=== PATIENT | male | born 1980 | race Caucasian/White ===

== ENCOUNTER 2021-06-07 08:17 | Inpatient (IN) ==
[2021-06-07] MEDS ORDERED: SODIUM CHLORIDE 0.9% 1000ML 1,000 ML IV STA (08:39)
--- NOTE | 2021-06-07 08:44 | Emergency Department Note ---
Impression & Plan Acute diverticulitis, Intestinal perforation ED Provider Note CHIEF COMPLAINT: Left lower abdominal pain and diarrhea HISTORY OF PRESENTING ILLNESS: This is a 40-year-old male who presents to the emergency department by private vehicle with complaint of left lower abdominal pain that started 3 days ago. He is also had associated diarrhea, but denies any bloody or black/tarry stools. He denies any nausea or vomiting. He has had some fevers and chills off and on. He notes the pain is primarily in his left lower quadrant and left flank, crampy in nature, persistent, and he rates the p ain 4/10. He notes a history of diverticulitis in the past and states that this feels similar. He did start taking Augmentin when his symptoms started 3 days ago and has also been observing a clear liquid diet since his symptoms started, but he has not having any improvement on this regimen. The patient also notes that he was concerned that he may be developing some jaundice, stating that his noted his skin looked yellowish today. He denies any urinary symptoms, but notes that his urine has been darker than usual. He does follow with Dr. Maier with gastroenterology. He denies any chest pain, chest tightness, shortness of breath, cough or URI symptoms. He is fully vaccinated for COVID-19. REVIEW OF SYSTEMS: A complete 10 point review of systems was reviewed with the patient with pertinent positives and negatives as per history of present illness. All else were negative. PAST MEDICAL HISTORY: History of fatty liver and hiatal hernia, history of diverticulitis SOCIAL HISTORY: Lives at home with family, he denies tobacco use ALLERGIES: No known allergies PHYSICAL EXAM: CONSTITUTIONAL: Pleasant and cooperative. Nontoxic-appearing and in no acute distress. Mildly dehydrated, but otherwise well appearing and well nourished. HEENT: Normocephalic, atraumatic. NECK: Supple, full active range of motion without discomfort. RESPIRATORY: Clear to auscultation bilaterally with no wheezing, crackles, rhonchi or stridor. Equal expansion bilaterally. CARDIOVASCULAR: Regular rate and rhythm with no murmurs, rubs or gallops. Normal peripheral perfusion. No edema. GASTROINTESTINAL: Tender to palpation in the left lower quadrant, no rebound tenderness or guarding. Mild tenderness across the lower abdomen. Abdomen is soft and nondistended. No palpable masses or HSM. Bowel sounds present in all quadrants. No CVA tenderness bilaterally. MUSCULOSKELETAL: Full range of motion of all joints without discomfort. INTEGUMENTARY: No rash or other significant dermatologic conditions noted. NEUROLOGIC: Alert and oriented X 4 with normal affect. Normal strength and sensation in all 4 extremities. Normal speech. Normal gait observed. ED COURSE AND MEDICAL DECISION MAKING: CC: Patient presenting with complaint of lower abdominal pain and diarrhea DIFFERENTIAL DIAGNOSIS: Includes, but not limited to diverticulitis, diverticulosis, pancreatitis, ureteral stone, UTI, pyelonephritis, intra- abdominal abscess, bowel perforation, small bowel obstruction, gastroenteritis, infectious colitis, mesenteric ischemia, among others. INTERPRETATION OF LABS: Leukocytosis, no anemia, normal platelets, no significant electrolyte abnormalities, normal renal function, mildly elevated total bilirubin, otherwise normal liver enzymes and lipase. Lactate within normal limits. UA shows 1+ ketones and 1+ protein and otherwise was negative. COVID testing negative today. MEDICATION RECONCILIATION: I attest that I have personally reviewed the patient's current medication list. INITIAL VITAL SIGNS REVIEW: I reviewed the patient's initial vital signs and interpret them as follows: T: Afebrile; BP: Normotensive; HR: Mildly tachycardic; RR: Within normal limits; Pulse Ox: Within normal limits on room air. MDM SUMMARY: Patient was evaluated at bedside, history and physical exam performed. Patient is alert and oriented, in no acute distress, resting calmly in stret stan. He is afebrile and nontoxic-appearing, but does appear to be mildly dehydrated clinically. Abdomen is point tender in the left lower quadrant, no acute abdomen or peritoneal signs. Cardiac monitoring: An order was placed for continuous cardiac monitoring. The monitor shows a rate of 97 bpm with normal sinus rhythm. Orders were placed for labs, UA, IV fluid bolus for hydration, CT abdomen/pelvis with IV contrast to evaluate for abdominal pain. Patient was offered something for pain, he declines at this time. Patient discussed with Dr. Holcomb, who agrees with my assessment, plan, and d isposition. Labs and imaging reviewed, labs notable for leukocytosis, but no other significant lab abnormalities. Lactate was within normal limits. CT imaging notable for severe acute diverticulitis of the mid descending colon with extraluminal gas in the left lower quadrant indicating perforation. There is also note of small volume intraperitoneal free air in the left lower abdomen. No drainable fluid collection/abscess noted. IV Zosyn was ordered for antibiotic coverage. The patient is being kept n.p.o. I called and spoke with Dr. Hanna with general surgery, who agrees to evaluate the patient for admission. Patient reassessed multiple times throughout ED stay, he has remained hemodynami cara stable and afebrile and notes that his pain remains adequately controlled and continues to decline anything for pain. The patient was updated on all results and plan for admission to the surgery team, all questions were answered to the best my ability and the patient was agreeable with this plan. The patient was stable at the time of admission. The chart was completed utilizing [employer] Speech voice recognition software. Grammatical errors, random word insertions, pronoun errors, and incomplete sentences are an occasional consequence of this system due to software limitations, ambient noise, and hardware issues. Any formal questions or concerns about the content, text, or information contained within the body of this dictation should be directly addressed to the nurse practitioner for clarification. Past Med/Surg History Medical History (Updated 06/07/21 @ 16:52 by KAMAR Esquivel) Arrhythmia HX PAC'S OVER THE PAST 15 YRS-NO MEDS Fatty liver Hiatal hernia History of diverticulitis Surgical History History of colonoscopy Family History Mother Family history of diabetes mellitus Grandfather (Maternal) Family hx of colon cancer Other No significant family history Social History Smoking Status: Never smoker Second Hand Exposure: No; Hx Alcohol Use: Yes Alcohol type: beer Hx Substance Use: No Preferred Language: Citizen Of [place] Communication Ability: Effective [employer] Analyst Required: No Beliefs That Will Affect Care: None Current Living Situation: Spouse Other Information That Helps Us Care for You: No Feels Safe at Home: Yes Safety Concerns: Feels Safe At This Time Assistive Devices: None Allergies Allergies Allergy/AdvReac Type Severity Reaction Status Date / Time No Known Allergies Allergy Verified 08/02/18 14:19 Home Meds Home Medications Medication Instructions Recorded Confirmed ibuprofen 200 mg tablet 600 mg PO QID PRN 07/13/18 06/07/21 amoxicillin 875 mg-potassium 1 tab PO BID 06/07/21 06/07/21 clavulanate 125 mg tablet Results & Data (ED) Vital Signs Vital Signs - 24 hr 06/07/21 08:18 06/07/21 10:18 06/07/21 11:28 Temperature 36.8 C Temperature Source Temporal Artery Scan Pulse Rate 105 H Pulse Rate [Finger] 84 79 Pulse Rhythm [Finger] Regular Regular Pulse Strength [Finger] Normal Respiratory Rate 18 18 18 Respiratory Effort / Characteristics Non-Labored Spontaneous Non-Labored Respiratory Depth Normal Normal Respiratory Pattern Regular Regular Blood Pressure 137/92 Blood Pressure [Right Arm] 137/81 141/87 H Blood Pressure Mean 107 Blood Pressure Mean [Right Arm] 99 105 Blood Pressure Position [Right Arm] Lying Pulse Oximetry 97 97 98 Oxygen Delivery Method Room Air Room Air Room Air Sepsis Recent Fever Within 48 Hours No Sepsis New/Unexplained Change in Mental Status No Sepsis Action Taken by Nursing No Action Required 06/07/21 12:38 06/07/21 13:09 Temperature 37.7 C H Temperature Source Oral Pulse Rate Pulse Rate [Finger] 81 75 Pulse Rhythm [Finger] Regular Pulse Strength [Finger] Normal Respiratory Rate 18 20 Respiratory Effort / Characteristics Non-Labored Non-Labored Spontaneous Respiratory Depth Normal Normal Respiratory Pattern Regular Regular Blood Pressure Blood Pressure [Right Arm] 129/76 132/74 Blood Pressure Mean Blood Pressure Mean [Right Arm] 93 93 Blood Pressure Position [Right Arm] Lying Lying Pulse Oximetry 97 99 Oxygen Delivery Method Room Air Room Air Sepsis Recent Fever Within 48 Hours Sepsis New/Unexplained Change in Mental Status Sepsis Action Taken by Nursing Laboratory Data Result diagrams: 06/07/21 09:00 06/07/21 09:00 Lab Results 06/07/21 06/07/21 06/07/21 Range/Units 09:00 09:00 10:19 WBC 12.74 H (4.8-10.8) K/uL RBC 5.03 (4.7-6.1) M/uL Hgb 14.7 (14.0-18.0) g/dL Hct 42.4 (42-52) % MCV 84.3 (80-100) fL MCH 29.2 (25-34) pg MCHC 34.7 (32-36) g/dL RDW Std Deviation 40.3 (36.4-46.3) fL RDW Coeff of Kaus[place] 13.1 (11.5-14.5) % Plt Count 179 (130-400) K/uL MPV 10.9 H (7.4-10.4) fL Immature Gran % (Auto) 0.2 % Neut % (Auto) 77.0 % Lymph % (Auto) 10.1 % [place] % (Auto) 9.9 % Eos % (Auto) 2.7 % Baso % (Auto) 0.1 % Neut # (Auto) 9.81 H (1.4-6.5) K/uL Lymph # (Auto) 1.29 (1.2-3.4) K/uL [place] # (Auto) 1.26 H (0.11-0.59) K/uL Eos # (Auto) 0.35 (0-0.5) K/uL Baso # (Auto) 0.01 (0-0.2) K/uL Immature Gran # (Auto) 0.02 (0.00-0.02) K/uL Sodium 138 (136-145) mmol/L Potassium 3.7 (3.5-5.1) mmol/L Chloride 103 (98-107) mmol/L Carbon Dioxide 24 (21-32) mmol/L Anion Gap 11 (3-11) BUN 20 (6-23) mg/dl Creatinine 1.13 (0.6-1.4) mg/dl Est Cr Clr Drug Dosing 100.2 ml/min Est GFR ( Amer) 92.4 ml/min Est GFR (Non-Af Amer) 79.7 ml/min BUN/Creatinine Ratio 17.7 (10-20) Glucose 91 (70-99(Fasting)) mg/dl Lactate (0.4-2.0) mmol/L Calcium 9.0 (8.5-10.1) mg/dl Total Bilirubin 1.1 H (0.2-1.0) mg/dl AST 17 (13-39) U/L ALT 12 (7-52) U/L Alkaline Phosphatase 54 (34-104) U/L Total Protein 7.7 (6.0-8.3) gm/dl Albumin 4.1 (3.4-5.0) gm/dl Globulin 3.6 (2.5-4.0) gm/dl Albumin/Globulin Ratio 1.1 (0.9-2) Lipase 13 (11-82) U/L Urine Color Urine Appearance (Clear) Urine pH (4.5-7.5) Ur Specific [place] (1.000-1.030) Urine Protein (Negative) Urine Glucose (UA) (Negative) Urine Ketones (Negative) Urine Blood (Negative) Urine Nitrite (Negative) Urine Bilirubin (Negative) Urine Urobilinogen (Negative) Ur Leukocyte Esterase (Negative) Urine WBC (Auto) (0-5) /hpf Urine RBC (Auto) (0-4) /hpf U Hyaline Cast (Auto) (0-5) /lpf U Epithel Cells (Auto) (0-5) /lpf Urine Bacteria (Auto) (Negative) SARS-CoV-2, RNA, NAAT NEGATIVE (NEGATIVE) 06/07/21 06/07/21 Range/Units 11:54 12:37 WBC (4.8-10.8) K/uL RBC (4.7-6.1) M/uL Hgb (14.0-18.0) g/dL Hct (42-52) % MCV (80-100) fL MCH (25-34) pg MCHC (32-36) g/dL RDW Std Deviation (36.4-46.3) fL RDW Coeff of Kaushal (11.5-14.5) % Plt Count (130-400) K/uL MPV (7.4-10.4) fL Immature Gran % (Auto) % Neut % (Auto) % Lymph % (Auto) % [place] % (Auto) % Eos % (Auto) % Baso % (Auto) % Neut # (Auto) (1.4-6.5) K/uL Lymph # (Auto) (1.2-3.4) K/uL [place] # (Auto) (0.11-0.59) K/uL Eos # (Auto) (0-0.5) K/uL Baso # (Auto) (0-0.2) K/uL Immature Gran # (Auto) (0.00-0.02) K/uL Sodium (136-145) mmol/L Potassium (3.5-5.1) mmol/L Chloride (98-107) mmol/L Carbon Dioxide (21-32) mmol/L Anion Gap (3-11) BUN (6-23) mg/dl Creatinine (0.6-1.4) mg/dl Est Cr Clr Drug Dosing ml/min Est GFR ( Amer) ml/min Est GFR (Non-Af Amer) ml/min BUN/Creatinine Ratio (10-20) Glucose (70-99(Fasting)) mg/dl Lactate 0.7 (0.4-2.0) mmol/L Calcium (8.5-10.1) mg/dl Total Bilirubin (0.2-1.0) mg/dl AST (13-39) U/L ALT (7-52) U/L Alkaline Phosphatase (34-104) U/L Total Protein (6.0-8.3) gm/dl Albumin (3.4-5.0) gm/dl Globulin (2.5-4.0) gm/dl Albumin/Globulin Ratio (0.9-2) Lipase (11-82) U/L Urine Color Yellow Urine Appearance Clear (Clear) Urine pH 5.5 (4.5-7.5) Ur Specific [place] > 1.045 H (1.000-1.030) Urine Protein 1+ H (Negative) Urine Glucose (UA) Negative (Negative) Urine Ketones 1+ H (Negative) Urine Blood Negative (Negative) Urine Nitrite Negative (Negative) Urine Bilirubin Negative (Negative) Urine Urobilinogen Negative (Negative) Ur Leukocyte Esterase Negative (Negative) Urine WBC (Auto) 1-5 (0-5) /hpf Urine RBC (Auto) 0-4 (0-4) /hpf U Hyaline Cast (Auto) 0 (0-5) /lpf U Epithel Cells (Auto) 0-5 (0-5) /lpf Urine Bacteria (Auto) Negative (Negative) SARS-CoV-2, RNA, NAAT (NEGATIVE) Administered Medications Piperacillin Sod/Tazobactam (Sod 3.375 gm/ Dextrose) 115 mls @ 28.75 mls/hr IV Q8H [facility]; Protocol Stop: 06/17/21 15:59 Last Admin: 06/07/21 16:14 Dose: 28.8 mls/hr Documented by: [id number] Discontinued Medications Sodium Chloride (Nss 1000ml) 1,000 mls @ 999 mls/hr IV .Q1H1M STA Stop: 06/07/21 09:39 Last Infusion: 06/07/21 10:05 Dose: 0 mls/hr Documented by: [id number] Admin: 06/07/21 09:02 Dose: 999 mls/hr Documented by: [id number] Piperacillin Sod/Tazobactam Sod (Zosyn) 4.5 gm in 120 mls @ 240 mls/hr IV NOW ONE Stop: 06/07/21 10:36 Last Infusion: 06/07/21 11:10 Dose: 0 mls/hr Documented by: [id number] Admin: 06/07/21 10:23 Dose: 240 mls/hr Documented by: [id number] Ioversol (Optiray 320 100ml) 94 ml IV ONCE ONE Stop: 06/07/21 09:38 Last Admin: 06/07/21 09:37 Dose: 94 ml Documented by: [id number] Imaging Data Radiologist's Impression: Abdomen/Pelvis CT 06/07/21 08:39 CT SCAN OF THE ABDOMEN AND PELVIS WITH IV CONTRAST CLINICAL HISTORY: Left lower quadrant abdominal pain. Diarrhea. COMPARISON STUDY: Abdominal CT dated 05/31/2018. TECHNIQUE: Following the IV administration of 94 cc of Optiray 320, CT scan of the abdomen and pelvis is performed from the lung bases to the proximal femora. Images are reviewed in the axial, sagittal, and coronal planes. IV contrast was administered without complication. A dose lowering technique was utilized adhering to the principles of ALARA. CT DOSE: 592.80 mGy.cm FINDINGS: Lung bases: The heart is normal in size and without pericardial effusion. There are scattered coronary artery calcifications. The lung bases are clear. Liver: The contrast-enhanced liver is enlarged, measuring 19.7 cm in length. Liver demonstrates drainage attenuation consistent with mild steatosis. Fatty sparing is seen adjacent to gallbladder fossa. There is no intrahepatic biliary ductal dilatation. The hepatic veins and portal veins are patent. Gallbladder: Unremarkable. Spleen: Top normal in size and normal in attenuation. Pancreas: Unremarkable. Adrenal glands: Unremarkable. Kidneys: The contrast enhanced kidneys are normal in size and without hydronephrosis. The kidneys enhance symmetrically. Abdominal vasculature: The abdominal aorta is normal in course and caliber. Bowel: There is moderate colonic diverticulosis. There is significant wall thickening with pericolonic inflammation and fluid involving the mid descending colon consistent with severe acute diverticulitis. There are small foci of extra luminal gas at this site. No organized/drainable fluid collection is seen to indicate abscess. There is wall thickening within the an adjacent loop of small bowel, likely reactive. The appendix is well-visualized and normal. Peritoneum: There is trace free fluid in the pelvis. There is a small volume of intraperitoneal free air in the left lower quadrant seen on image #294. Lymphadenopathy: None. Pelvic viscera: The bladder, prostate, and seminal vesicles are normal as visualized. Skeletal structures: No lytic or blastic lesions are seen. IMPRESSION: 1. There is moderate colonic diverticulosis with evidence of severe acute diverticulitis of the mid descending colon. 2. Extraluminal gas in the left lower quadrant indicates perforation. 3. No organized/drainable fluid collection is seen to indicate abscess. 4. Thick-walled loops of adjacent small bowel are likely reactive. 5. The liver is enlarged and mildly steatotic. 6. Trace free fluid in the pelvis is likely reactive. 7. Additional findings as above. ACT 112: Negative or not required by law. Electronically signed by: Raman Kim M.D. 06/07/2021 9:55 AM Discharge Plan Visit Data Chief Complaint: Abdominal Pain Stated Complaint: LT LOWER ABD PAIN,FEVER,VOMITING ED Provider: Andrae Holcomb ED Midlevel Provider: Kay Moya Discharge Problem: Acute diverticulitis, Intestinal perforation Patient Disposition: Admitted As Inpatient Discharge Instructions Interventions: ED Discharge Assessment Last Done: 06/07/21 15:42
[2021-06-07 09:17] LABS: Basophils # (auto) 0.01 K/uL (0-0.2); Basophils % (auto) 0.1 %; Eosinophils # (auto) 0.35 K/uL (0-0.5); Eosinophils % (auto) 2.7 %; Hematocrit (blood only) 42.4 % (42-52); Hemoglobin 14.7 g/dL (14.0-18.0); Immature Granulocytes # (auto) 0.02 K/uL (0.00-0.02); Immature Granulocytes % (auto) 0.2 %; Lymphocytes # (auto) 1.29 K/uL (1.2-3.4); Lymphocytes % (auto) 10.1 %; Mean Corpuscular Hemoglobin 29.2 pg (25-34); Mean Corpuscular Hgb Conc 34.7 g/dL (32-36); Mean Corpuscular Volume 84.3 fL (80-100); Mean Platelet Volume 10.9 fL (7.4-10.4); Monocytes # (auto) 1.26 K/uL (0.11-0.59); Monocytes % (auto) 9.9 %; Neutrophils # (auto) 9.81 K/uL (1.4-6.5); Platelet Count 179 K/uL (130-400); RDW Coefficient of Variation 13.1 % (11.5-14.5); RDW Standard Deviation 40.3 fL (36.4-46.3); Red Blood Count 5.03 M/uL (4.7-6.1); White Blood Count 12.74 K/uL (4.8-10.8)
[2021-06-07 09:28] LABS: Albumin Globulin Ratio 1.1 (0.9-2); Albumin Level 4.1 gm/dl (3.4-5.0); BUN Creatinine Ratio 17.7 (10-20); Bilirubin,Total 1.1 mg/dl (0.2-1.0); Creatinine Clr Calc Pharmacy 100.2 ml/min; Est GFR (African American) 92.4 ml/min; Est GFR (Non-African American) 79.7 ml/min; Globulin 3.6 gm/dl (2.5-4.0); Potassium 3.7 mmol/L (3.5-5.1); Total Protein 7.7 gm/dl (6.0-8.3)
[2021-06-07] MEDS ORDERED: OPTIRAY 320 100ml IV ONE (09:37)
--- NOTE | 2021-06-07 09:56 | CT Scan Report ---
CT SCAN OF THE ABDOMEN AND PELVIS WITH IV CONTRAST CLINICAL HISTORY: Left lower quadrant abdominal pain. Diarrhea. COMPARISON STUDY: Abdominal CT dated 05/31/2018. TECHNIQUE: Following the IV administration of 94 cc of Optiray 320, CT scan of the abdomen and pelvi s is performed from the lung bases to the proximal femora. Images are reviewed in the axial, sagittal , and coronal planes. IV contrast was administered without complication. A dose lowering technique wa s utilized adhering to the principles of ALARA. CT DOSE: 592.80 mGy.cm FINDINGS: Lung bases: The heart is normal in size and without pericardial effusion. There are scattered coronar y artery calcifications. The lung bases are clear. Liver: The contrast-enhanced liver is enlarged, measuring 19.7 cm in length. Liver demonstrates drain age attenuation consistent with mild steatosis. Fatty sparing is seen adjacent to gallbladder fossa. There is no intrahepatic biliary ductal dilatation. The hepatic veins and portal veins are patent. Gallbladder: Unremarkable. Spleen: Top normal in size and normal in attenuation. Pancreas: Unremarkable. Adrenal glands: Unremarkable. Kidneys: The contrast enhanced kidneys are normal in size and without hydronephrosis. The kidneys enh ance symmetrically. Abdominal vasculature: The abdominal aorta is normal in course and caliber. Bowel: There is moderate colonic diverticulosis. There is significant wall thickening with pericoloni c inflammation and fluid involving the mid descending colon consistent with severe acute diverticulit is. There are small foci of extra luminal gas at this site. No organized/drainable fluid collection i s seen to indicate abscess. There is wall thickening within the an adjacent loop of small bowel, like ly reactive. The appendix is well-visualized and normal. Peritoneum: There is trace free fluid in the pelvis. There is a small volume of intraperitoneal free air in the left lower quadrant seen on image #294. Lymphadenopathy: None. Pelvic viscera: The bladder, prostate, and seminal vesicles are normal as visualized. Skeletal structures: No lytic or blastic lesions are seen. IMPRESSION: 1. There is moderate colonic diverticulosis with evidence of severe acute diverticulitis of the mid d escending colon. 2. Extraluminal gas in the left lower quadrant indicates perforation. 3. No organized/drainable fluid collection is seen to indicate abscess. 4. Thick-walled loops of adjacent small bowel are likely reactive. 5. The liver is enlarged and mildly steatotic. 6. Trace free fluid in the pelvis is likely reactive. 7. Additional findings as above. ACT 112: Negative or not required by law. Electronically signed by: Raman Kim M.D. 06/07/2021 9:55 AM
[2021-06-07] MEDS ORDERED: PIPERACILLIN/TAZOBACTAM 4.5 GM/120 ML BAG IV ONE (10:07)
[2021-06-07] MEDS ORDERED: PIPERACILL/TAZOBAC CONSULT ACTIVE PRN ×2 (10:07→15:43)
[2021-06-07 12:19] LABS: Appearance Urine Clear (Clear); Bacteria Urine Automated Negative (Negative); Bilirubin Urine Negative (Negative); Blood Urine Negative (Negative); Cast Urine Automated 0 /lpf (0-5); Color Urine Yellow; Epithelial Cell Urine Auto 0-5 /lpf (0-5); Glucose Urine UA Negative (Negative); Ketones Urine 1+ (Negative); Leukocyte Esterase Urine Negative (Negative); Nitrite Urine Negative (Negative); Protein Urine 1+ (Negative); RBC Urine Automated 0-4 /hpf (0-4); Urobilinogen Urine Negative (Negative); pH Urine 5.5 (4.5-7.5)
[2021-06-07 12:32] LABS: Specific Gravity Urine > 1.045 (1.000-1.030)
[2021-06-07] MEDS ORDERED: IBUPROFEN 600 MG TAB PO PRN (15:43)
[2021-06-07] MEDS ORDERED: HYDROmorphone INJ 1 MG/ML SYRINGE IV PRN (15:43)
[2021-06-07] MEDS: PIPERACILLIN/TAZOBACTAM 3.375 GM in DEXTROSE 5% 100 ML IV SCH (16:14)
--- NOTE | 2021-06-07 16:40 | Surgery Consultation ---
Date of Consultation June 07, 2021 Assessment & Plan (1) Acute diverticulitis: pt is a 40 year-old male who presents with ER with 3 days history LLQ pain, IM: acute diverticulitis with microperforation, plan, base on pt is stable, no fever, no tachycardia, less abdominal pain compare yesterday, pt said he feels better, I recommend to admit pt to hospital for conservative treatment first, NPO, IV fluid, iv antibiotic, control pain, repeat labs in morning, I also indicate that pt may need surgery treatment possible colostomy, bowel resection, if pt's condition is getting worse, pt understood, he agrees with the plan, I answered all questions, History of Present Illness Reason for Consultation: abdominal apin Attending Physician: Becky Hanna MD History of Present Illness ED Provider Note CHIEF COMPLAINT: Left lower abdominal pain and diarrhea HISTORY OF PRESENTING ILLNESS: This is a 40-year-old male who presents to the emergency department by private vehicle with complaint of left lower abdominal pain that started 3 days ago. He is also had associated diarrhea, but denies any bloody or black/tarry stools. He denies any nausea or vomiting. He has had some fevers and chills off and on. He notes the pain is primarily in his left lower quadrant and left flank, crampy in nature, persistent, and he rates the pain 4/10. He notes a history of diverticulitis in the past and states that this feels similar. He did start taking Augmentin when his symptoms started 3 days ago and has also been observing a clear liquid diet since his symptoms started, but he has not having any improvement on this regimen. The patient also notes that he was concerned that he may be developing some jaundice, stating that his noted his skin looked yellowish today. He denies any urinary symptoms, but notes that his urine has been darker than usual. He does follow with Dr. Maier with gastroenterology. He denies any chest pain, chest tightness, shortness of breath, cough or URI symptoms. He is fully vaccinated for COVID-19. I ( Becky Hanna MD ) got a call for consult diverticulitis, I reviewed pt's H/P,labs, CT scan with pt, pt feels better, less LLQ pain, no fever, REVIEW OF SYSTEMS: A complete 10 point review of systems was reviewed with the patient with pertinent positives and negatives as per history of present illness. All else were negative. PAST MEDICAL HISTORY: History of fatty liver and hiatal hernia, history of diverticulitis SOCIAL HISTORY: Lives at home with family, he denies tobacco use ALLERGIES: No known allergies Allergies Allergy/AdvReac Type Severity Reaction Status Date / Time No Known Allergies Allergy Verified 08/02/18 14:19 Home Medications Medication Instructions Recorded Confirmed Type ibuprofen 200 mg tablet 600 mg PO QID PRN 07/13/18 06/07/21 History amoxicillin 875 mg-potassium 1 tab PO BID 06/07/21 06/07/21 History clavulanate 125 mg tablet Patient History Medical History (Updated 06/07/21 @ 16:41 by Becky Hanna MD) Arrhythmia HX PAC'S OVER THE PAST 15 YRS-NO MEDS Fatty liver Hiatal hernia History of diverticulitis Surgical History History of colonoscopy Family History Mother Family history of diabetes mellitus Grandfather (Maternal) Family hx of colon cancer Other No significant family history Social History Smoking Status: Never smoker Second Hand Exposure: No; Hx Alcohol Use: Yes Alcohol type: beer Hx Substance Use: No Preferred Language: Estonian Communication Ability: Effective 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 Beliefs That Will Affect Care: None Current Living Situation: Spouse Other Information That Helps Us Care for You: No Feels Safe at Home: Yes Safety Concerns: Feels Safe At This Time Assistive Devices: None Review of Systems Constitutional: as per Subjective / HPI Eyes: as per Subjective / HPI Respiratory: as per Subjective / HPI Cardiovascular: as per Subjective / HPI Gastrointestinal: diverticulitis, 3 years ago, Genitourinary: + as per Subjective / HPI Musculoskeletal: as per Subjective / HPI Integumentary: as per Subjective / HPI Neurologic: as per Subjective / HPI Psychiatric: as per Subjective / HPI Endocrine: as per Subjective / HPI Hematologic / Lymphatic: as per Subjective / HPI Physical Exam Constitutional: WD/WN, vitals as above no distress, Eyes: PERRL, conjunctivae normal, anicteric sclerae Neck: trachea midline, no thyromegaly Respiratory: normal respiratory effort, lungs clear to auscultation Cardiovascular: RRR, no murmur, no edema Gastrointestinal (Abdomen): soft, mild tenderness at LLQ , no rebound pain, no distend, BS + Musculoskeletal: no cyanosis or clubbing, extremities motor strength 5/5 Neurologic: patellar DTR's 2+ bilat, sensation intact Psychiatric: A+Ox3, euthymic affect Results & Data ([facility]) Vital Signs (Past 12 Hours) Vital Signs Temp Pulse Pulse Resp BP BP Pulse Ox 06/07/21 16:16 36.9 C 76 16 128/76 96 06/07/21 13:09 75 20 132/74 99 06/07/21 12:38 37.7 C H 81 18 129/76 97 06/07/21 11:28 79 18 141/87 H 98 06/07/21 10:18 84 18 137/81 97 06/07/21 08:18 36.8 C 105 H 18 137/92 97 Laboratory Results Abnormal lab results 06/07/21 06/07/21 06/07/21 Range/Units 09:00 09:00 11:54 WBC 12.74 H (4.8-10.8) K/uL MPV 10.9 H (7.4-10.4) fL Neut # (Auto) 9.81 H (1.4-6.5) K/uL [place] # (Auto) 1.26 H (0.11-0.59) K/uL Total Bilirubin 1.1 H (0.2-1.0) mg/dl Ur Specific Model > 1.045 H (1.000-1.030) Urine Protein 1+ H (Negative) Urine Ketones 1+ H (Negative) Diagnostic Findings CT SCAN OF THE ABDOMEN AND PELVIS WITH IV CONTRAST CLINICAL HISTORY: Left lower quadrant abdominal pain. Diarrhea. COMPARISON STUDY: Abdominal CT dated 05/31/2018. TECHNIQUE: Following the IV administration of 94 cc of Optiray 320, CT scan of the abdomen and pelvis is performed from the lung bases to the proximal femora. Images are reviewed in the axial, sagittal, and coronal planes. IV contrast was administered without complication. A dose lowering technique was utilized adhering to the principles of ALARA. CT DOSE: 592.80 mGy.cm FINDINGS: Lung bases: The heart is normal in size and without pericardial effusion. There are scattered coronary artery calcifications. The lung bases are clear. Liver: The contrast-enhanced liver is enlarged, measuring 19.7 cm in length. Liver demonstrates drainage attenuation consistent with mild steatosis. Fatty sparing is seen adjacent to gallbladder fossa. There is no intrahepatic biliary ductal dilatation. The hepatic veins and portal veins are patent. Gallbladder: Unremarkable. Spleen: Top normal in size and normal in attenuation. Pancreas: Unremarkable. Adrenal glands: Unremarkable. Kidneys: The contrast enhanced kidneys are normal in size and without hydronephrosis. The kidneys enhance symmetrically. Abdominal vasculature: The abdominal aorta is normal in course and caliber. Bowel: There is moderate colonic diverticulosis. There is significant wall thickening with pericolonic inflammation and fluid involving the mid descending colon consistent with severe acute diverticulitis. There are small foci of extra luminal gas at this site. No organized/drainable fluid collection is seen to indicate abscess. There is wall thickening within the an adjacent loop of small bowel, likely reactive. The appendix is well-visualized and normal. Peritoneum: There is trace free fluid in the pelvis. There is a small volume of intraperitoneal free air in the left lower quadrant seen on image #[id number]. Lymphadenopathy: None. Pelvic viscera: The bladder, prostate, and seminal vesicles are normal as visualized. Skeletal structures: No lytic or blastic lesions are seen. IMPRESSION: 1. There is moderate colonic diverticulosis with evidence of severe acute diverticulitis of the mid descending colon. 2. Extraluminal gas in the left lower quadrant indicates perforation. 3. No organized/drainable fluid collection is seen to indicate abscess. 4. Thick-walled loops of adjacent small bowel are likely reactive. 5. The liver is enlarged and mildly steatotic. 6. Trace free fluid in the pelvis is likely reactive. 7. Additional findings as above.
[2021-06-07] MEDS: LACTATED RINGER'S 1,000 ML IV SCH (20:18)
[2021-06-08] MEDS: PIPERACILLIN/TAZOBACTAM 3.375 GM in DEXTROSE 5% 100 ML IV SCH ×4 (00:04→23:23)
[2021-06-08] MEDS: LACTATED RINGER'S 1,000 ML IV SCH ×3 (04:09→23:18)
[2021-06-08 05:36] LABS: Basophils # (auto) 0.02 K/uL (0-0.2); Basophils % (auto) 0.3 %; Eosinophils # (auto) 0.48 K/uL (0-0.5); Eosinophils % (auto) 6.3 %; Hematocrit (blood only) 38.4 % (42-52); Hemoglobin 13.3 g/dL (14.0-18.0); Immature Granulocytes # (auto) 0.02 K/uL (0.00-0.02); Immature Granulocytes % (auto) 0.3 %; Lymphocytes # (auto) 1.11 K/uL (1.2-3.4); Lymphocytes % (auto) 14.5 %; Mean Corpuscular Hgb Conc 34.6 g/dL (32-36); Mean Corpuscular Volume 83.7 fL (80-100); Mean Platelet Volume 10.7 fL (7.4-10.4); Monocytes # (auto) 0.78 K/uL (0.11-0.59); Monocytes % (auto) 10.2 %; Neutrophils # (auto) 5.25 K/uL (1.4-6.5); Neutrophils % (auto) 68.4 %; Platelet Count 165 K/uL (130-400); RDW Coefficient of Variation 13.1 % (11.5-14.5); RDW Standard Deviation 39.4 fL (36.4-46.3); Red Blood Count 4.59 M/uL (4.7-6.1); White Blood Count 7.66 K/uL (4.8-10.8)
[2021-06-08 06:15] LABS: Albumin Globulin Ratio 1.1 (0.9-2); Albumin Level 3.5 gm/dl (3.4-5.0); BUN Creatinine Ratio 17.6 (10-20); Bilirubin,Total 0.8 mg/dl (0.2-1.0); Calcium 8.4 mg/dl (8.5-10.1); Creatinine Clr Calc Pharmacy 104.8 ml/min; Est GFR (African American) 97.6 ml/min; Est GFR (Non-African American) 84.2 ml/min; Globulin 3.1 gm/dl (2.5-4.0); Potassium 3.6 mmol/L (3.5-5.1); Total Protein 6.6 gm/dl (6.0-8.3)
[2021-06-08] MEDS ORDERED: ONDANSETRON INJ 2 MG/ML 2 ML VIAL IV PRN (07:39)
[2021-06-08] MEDS ORDERED: ACETAMINOPHEN 325 MG TAB PO PRN (10:59)
[2021-06-08] MEDS ORDERED: oxyCODONE/ACETAMINOPHEN 5mg/325mg TAB PO PRN (10:59)
--- NOTE | 2021-06-08 11:29 | Surgery Progress Note ---
Date of Service June 08, 2021 Assessment & Plan (1) Acute diverticulitis: Plan: acute diverticulitis with microperforation, -afebrile, vss - abdominal pain improving - leukocytosis resolved Plan: Continue conservative measures Clear liquid diet Continue IV Zosyn Continue pain management and antiemetics as needed Continue IV fluids repeat am labs Patient was seen in collaboration with Dr. Hanna during rounds who agrees with above. Admission and Anticipated Discharge Date Admission Date: June 07, 2021 Subjective feeling better today abdominal pain in left side is improving no nausea or vomiting no fevers or chills Physical Exam Constitutional: WD/WN, vitals as above no acute distress and not ill appearing Neck: normal visual inspection and trachea midline Respiratory: normal respiratory effort; no respiratory distress Gastrointestinal (Abdomen): Inspection/Auscultation: abdomen normal to inspection; abdomen not distended Percussion/Palpation: + abdomen tender (left mid lateral and LLQ) and abdomen soft; no guarding and abdomen not rigid Skin: no rashes, warm and dry Psychiatric: A+Ox3, euthymic affect Results & Data ([facility]) Vital Signs (Past 12 Hours) Vital Signs Temp Pulse Resp BP Pulse Ox 06/08/21 07:52 36.7 C 88 16 125/77 97 Laboratory Results 06/08/21 06/08/21 06/07/21 Range/Units 05:25 05:25 12:37 WBC 7.66 (4.8-10.8) K/uL RBC 4.59 L (4.7-6.1) M/uL Hgb 13.3 L (14.0-18.0) g/dL Hct 38.4 L (42-52) % MCV 83.7 (80-100) fL MCH 29.0 (25-34) pg MCHC 34.6 (32-36) g/dL RDW Std Deviation 39.4 (36.4-46.3) fL RDW Coeff of Kaushal 13.1 (11.5-14.5) % Plt Count 165 (130-400) K/uL MPV 10.7 H (7.4-10.4) fL Immature Gran % (Auto) 0.3 % Neut % (Auto) 68.4 % Lymph % (Auto) 14.5 % [place] % (Auto) 10.2 % Eos % (Auto) 6.3 % Baso % (Auto) 0.3 % Neut # (Auto) 5.25 (1.4-6.5) K/uL Lymph # (Auto) 1.11 L (1.2-3.4) K/uL [place] # (Auto) 0.78 H (0.11-0.59) K/uL Eos # (Auto) 0.48 (0-0.5) K/uL Baso # (Auto) 0.02 (0-0.2) K/uL Immature Gran # (Auto) 0.02 (0.00-0.02) K/uL Sodium 140 (136-145) mmol/L Potassium 3.6 (3.5-5.1) mmol/L Chloride 107 (98-107) mmol/L Carbon Dioxide 22 (21-32) mmol/L Anion Gap 11 (3-11) BUN 19 (6-23) mg/dl Creatinine 1.08 (0.6-1.4) mg/dl Est Cr Clr Drug Dosing 104.8 ml/min Est GFR ( Amer) 97.6 ml/min Est GFR (Non-Af Amer) 84.2 ml/min BUN/Creatinine Ratio 17.6 (10-20) Glucose 82 (70-99(Fasting)) mg/dl Lactate 0.7 (0.4-2.0) mmol/L Calcium 8.4 L (8.5-10.1) mg/dl Total Bilirubin 0.8 (0.2-1.0) mg/dl AST 16 (13-39) U/L ALT 12 (7-52) U/L Alkaline Phosphatase 43 (34-104) U/L Total Protein 6.6 (6.0-8.3) gm/dl Albumin 3.5 (3.4-5.0) gm/dl Globulin 3.1 (2.5-4.0) gm/dl Albumin/Globulin Ratio 1.1 (0.9-2) Urine Color Urine Appearance (Clear) Urine pH (4.5-7.5) Ur Specific [place] (1.000-1.030) Urine Protein (Negative) Urine Glucose (UA) (Negative) Urine Ketones (Negative) Urine Blood (Negative) Urine Nitrite (Negative) Urine Bilirubin (Negative) Urine Urobilinogen (Negative) Ur Leukocyte Esterase (Negative) Urine WBC (Auto) (0-5) /hpf Urine RBC (Auto) (0-4) /hpf U Hyaline Cast (Auto) (0-5) /lpf U Epithel Cells (Auto) (0-5) /lpf Urine Bacteria (Auto) (Negative) 06/07/21 Range/Units 11:54 WBC (4.8-10.8) K/uL RBC (4.7-6.1) M/uL Hgb (14.0-18.0) g/dL Hct (42-52) % MCV (80-100) fL MCH (25-34) pg MCHC (32-36) g/dL RDW Std Deviation (36.4-46.3) fL RDW Coeff of Kaushal (11.5-14.5) % Plt Count (130-400) K/uL MPV (7.4-10.4) fL Immature Gran % (Auto) % Neut % (Auto) % Lymph % (Auto) % [place] % (Auto) % Eos % (Auto) % Baso % (Auto) % Neut # (Auto) (1.4-6.5) K/uL Lymph # (Auto) (1.2-3.4) K/uL [place] # (Auto) (0.11-0.59) K/uL Eos # (Auto) (0-0.5) K/uL Baso # (Auto) (0-0.2) K/uL Immature Gran # (Auto) (0.00-0.02) K/uL Sodium (136-145) mmol/L Potassium (3.5-5.1) mmol/L Chloride (98-107) mmol/L Carbon Dioxide (21-32) mmol/L Anion Gap (3-11) BUN (6-23) mg/dl Creatinine (0.6-1.4) mg/dl Est Cr Clr Drug Dosing ml/min Est GFR ( Amer) ml/min Est GFR (Non-Af Amer) ml/min BUN/Creatinine Ratio (10-20) Glucose (70-99(Fasting)) mg/dl Lactate (0.4-2.0) mmol/L Calcium (8.5-10.1) mg/dl Total Bilirubin (0.2-1.0) mg/dl AST (13-39) U/L ALT (7-52) U/L Alkaline Phosphatase (34-104) U/L Total Protein (6.0-8.3) gm/dl Albumin (3.4-5.0) gm/dl Globulin (2.5-4.0) gm/dl Albumin/Globulin Ratio (0.9-2) Urine Color Yellow Urine Appearance Clear (Clear) Urine pH 5.5 (4.5-7.5) Ur Specific [place] > 1.045 H (1.000-1.030) Urine Protein 1+ H (Negative) Urine Glucose (UA) Negative (Negative) Urine Ketones 1+ H (Negative) Urine Blood Negative (Negative) Urine Nitrite Negative (Negative) Urine Bilirubin Negative (Negative) Urine Urobilinogen Negative (Negative) Ur Leukocyte Esterase Negative (Negative) Urine WBC (Auto) 1-5 (0-5) /hpf Urine RBC (Auto) 0-4 (0-4) /hpf U Hyaline Cast (Auto) 0 (0-5) /lpf U Epithel Cells (Auto) 0-5 (0-5) /lpf Urine Bacteria (Auto) Negative (Negative)
[2021-06-09 07:33] LABS: Basophils # (auto) 0.03 K/uL (0-0.2); Basophils % (auto) 0.5 %; Eosinophils # (auto) 0.45 K/uL (0-0.5); Hematocrit (blood only) 36.3 % (42-52); Immature Granulocytes # (auto) 0.02 K/uL (0.00-0.02); Immature Granulocytes % (auto) 0.3 %; Lymphocytes # (auto) 1.37 K/uL (1.2-3.4); Lymphocytes % (auto) 21.4 %; Mean Corpuscular Hgb Conc 33.1 g/dL (32-36); Mean Corpuscular Volume 84.8 fL (80-100); Mean Platelet Volume 10.5 fL (7.4-10.4); Monocytes # (auto) 0.53 K/uL (0.11-0.59); Monocytes % (auto) 8.3 %; Neutrophils # (auto) 4.01 K/uL (1.4-6.5); Neutrophils % (auto) 62.5 %; Platelet Count 161 K/uL (130-400); RDW Coefficient of Variation 13.2 % (11.5-14.5); RDW Standard Deviation 40.6 fL (36.4-46.3); Red Blood Count 4.28 M/uL (4.7-6.1); White Blood Count 6.41 K/uL (4.8-10.8)
[2021-06-09 07:56] LABS: BUN Creatinine Ratio 13.7 (10-20); Calcium 8.1 mg/dl (8.5-10.1); Est GFR (African American) 104.6 ml/min; Est GFR (Non-African American) 90.2 ml/min; Potassium 3.5 mmol/L (3.5-5.1)
[2021-06-09] MEDS: PIPERACILLIN/TAZOBACTAM 3.375 GM in DEXTROSE 5% 100 ML IV SCH (08:09)
[2021-06-09] MEDS: LACTATED RINGER'S 1,000 ML IV SCH (08:15)
--- NOTE | 2021-06-09 10:16 | Surgery Progress Note ---
Date of Service June 09, 2021 Assessment & Plan (1) Acute diverticulitis: Plan: acute diverticulitis with microperforation, -afebrile, vss - abdominal pain almost completely resolved - leukocytosis resolved Plan: Full liquid diet for lunch Continue IV Zosyn Continue pain management and antiemetics as needed Continue IV fluids If tolerates full liquids can be discharged home with 10 day course of oral cipro and flagyl Follow-up surgery office in 2 weeks Patient was seen in collaboration with Dr. Hanna during rounds who agrees with above. Admission and Anticipated Discharge Date Admission Date: June 07, 2021 Subjective feeling better today pain is mostly resolved, occasional twinge of discomfort in left lower abdomen no nausea/vomiting tolerated clears would like to go home today Physical Exam Constitutional: WD/WN, vitals as above no acute distress and not ill appearing Neck: normal visual inspection and trachea midline Respiratory: normal respiratory effort; no respiratory distress Gastrointestinal (Abdomen): Inspection/Auscultation: abdomen normal to inspection; abdomen not distended Percussion/Palpation: + abdomen tender (very little in left lower abdomen/left flank) and abdomen soft; no guarding and abdomen not rigid Skin: no rashes, warm and dry Psychiatric: A+Ox3, euthymic affect Results & Data ([facility]) Vital Signs (Past 12 Hours) Vital Signs Temp Pulse Resp BP Pulse Ox 06/09/21 08:24 36.6 C 77 16 116/78 97 06/08/21 23:26 36.7 C 74 16 104/63 96 Laboratory Results 06/09/21 06/09/21 Range/Units 07:20 07:20 WBC 6.41 (4.8-10.8) K/uL RBC 4.28 L (4.7-6.1) M/uL Hgb 12.0 L (14.0-18.0) g/dL Hct 36.3 L (42-52) % MCV 84.8 (80-100) fL MCH 28.0 (25-34) pg MCHC 33.1 (32-36) g/dL RDW Std Deviation 40.6 (36.4-46.3) fL RDW Coeff of Kaushal 13.2 (11.5-14.5) % Plt Count 161 (130-400) K/uL MPV 10.5 H (7.4-10.4) fL Immature Gran % (Auto) 0.3 % Neut % (Auto) 62.5 % Lymph % (Auto) 21.4 % [place] % (Auto) 8.3 % Eos % (Auto) 7.0 % Baso % (Auto) 0.5 % Neut # (Auto) 4.01 (1.4-6.5) K/uL Lymph # (Auto) 1.37 (1.2-3.4) K/uL [place] # (Auto) 0.53 (0.11-0.59) K/uL Eos # (Auto) 0.45 (0-0.5) K/uL Baso # (Auto) 0.03 (0-0.2) K/uL Immature Gran # (Auto) 0.02 (0.00-0.02) K/uL Sodium 139 (136-145) mmol/L Potassium 3.5 (3.5-5.1) mmol/L Chloride 107 (98-107) mmol/L Carbon Dioxide 26 (21-32) mmol/L Anion Gap 6 (3-11) BUN 14 (6-23) mg/dl Creatinine 1.02 (0.6-1.4) mg/dl Est Cr Clr Drug Dosing 111.0 ml/min Est GFR ( Amer) 104.6 ml/min Est GFR (Non-Af Amer) 90.2 ml/min BUN/Creatinine Ratio 13.7 (10-20) Glucose 90 (70-99(Fasting)) mg/dl Calcium 8.1 L (8.5-10.1) mg/dl
--- NOTE | 2021-06-10 14:52 | Discharge Summary ---
Date of Service June 10, 2021 Admission HPI Per Admitting Provider This is a 40-year-old male who presents to the emergency department by private vehicle with complaint of left lower abdominal pain that started 3 days ago. He is also had associated diarrhea, but denies any bloody or black/tarry stools. He denies any nausea or vomiting. He has had some fevers and chills off and on. He notes the pain is primarily in his left lower quadrant and left flank, crampy in nature, persistent, and he rates the pain 4/10. He notes a history of diverticulitis in the past and states that this feels similar. He did start taking Augmentin when his symptoms started 3 days ago and has also been observing a clear liquid diet since his symptoms started, but he has not having any improvement on this regimen. The patient also notes that he was concerned that he may be developing some jaundice, stating that his noted his skin looked yellowish today. He denies any urinary symptoms, but notes that his urine has been darker than usual. He does follow with Dr. Maier with gastroent erology. He denies any chest pain, chest tightness, shortness of breath, cough or URI symptoms. He is fully vaccinated for COVID-19. I ( Becky Hanna MD ) got a call for consult diverticulitis, I reviewed pt's H/P,labs, CT scan with pt, pt feels better, less LLQ pain, no fever, Principal Diagnosis Acute diverticulitis of mid descending colon with microperforation Discharge Data Allergies Allergy/AdvReac Type Severity Reaction Status Date / Time No Known Allergies Allergy Verified 08/02/18 14:19 Consultations 06/07/21 12:29 ED Decision to Admit Stat Ordered Studies 06/07/21 08:39 CT abd pelvis IV con only Stat Hospital Course (1) Acute diverticulitis: Patient was admitted to hospital to medica/surgical floor from emergency department . Conservative management was recommended as there were no acute abdominal signs on examination and need for emergent surgical intervention. Diet was kept npo, IV fluids , IV Zosyn, and antiemtics and pain management as needed. His diet was slowly advanced from clears to full liquids during his hospital stay. His leukocytosis resolved HD # 1 and pain significantly improved as well. He tolerated advancement of diet and on HD # 2 he was discharged home in stable condition with 10 day course of Cipro and Flagyl. He will follow-up in surgical office in 2 weeks . He may need discussion of surgical resection given multiple episodes of diverticulitis. Had a colonoscopy in 2019, follows with Dr. Maier. Total Time Total Time Spent Total Time Spent (In Minutes): 30 Total Time Includes: Examination of the Patient, Discharge Planning and Medication Reconciliation Discharge Plan Discharge Items Patient Disposition: Home - Self-Care Reason For Visit: VOMITING, LOWER ABDOMINAL PAIN Discharge Diagnosis: Acute diverticulitis with microperforation Activity: Per Instructions section Non-emergency contact: Primary Care Provider and Surgeon Call non-emergency contact if: you have any medication questions, your pain is not controlled, your pain is concerning for you and you have a fever Follow-up/Referrals: PCP,NO [Primary Care Provider] - Diet: Low Fiber Addtl Attending Provider Instructions: Recommend no strenuous activity or vigorous sports/exercise for about 2 weeks Low fiber diet for 2-4 weeks and then once acute phase is over would recommend high fiber diet for the diverticulosis. Complete entire course of antibiotics as prescribed, 10 day course of two separate antibiotics Follow-up in surgery office in 2 weeks Please call surgical office at [phone] if you have any questions or concerns Pending Studies at Discharge: No Stand-Alone Forms: My [facility] DocsInk, Smoking Cessation Medications and DC Order Prescriptions: New ciprofloxacin HCl 500 mg tablet 500 mg PO BID Qty: 20 RF: 0 metronidazole 500 mg tablet 500 mg PO TID Qty: 30 RF: 0 Continued ibuprofen 200 mg Tablet 600 mg PO QID PRN (Reason: Pain) RF: 0 Discontinued amoxicillin-pot clavulanate 875-125 mg tablet 1 tab PO BID RF: 0 Discharge Orders: Discharge Order (Routine); Ordered 06/09/21 Ordered By: Alison Aragon/Other Patient Handouts: Low-Fiber Diet, Diverticulosis and Diverticulitis, High Fiber Diet Dc Admission Data Admit Date/Time: 06/07/21 13:56 Attending Provider: Becky Hanna Admit Provider: Becky Hanna Primary Care Provider: PCP,NO Other Providers: Becky Hanna Other Interventions: Discharge Summary Assessment (RN) Last Done: 06/09/21 13:11
== END 2021-06-09 14:45 | disposition home or self-care (01) | DRG 392 ==
LOC: ED 08:17 → EDINP 13:56 → 3N 15:42
DX: K57.20 Diverticulitis of large intestine with perforation and abscess without bleeding